=== PATIENT | female | born 1995 | race Caucasian/White ===

== ENCOUNTER 2017-03-13 12:33 | Emergency (ER) | payer BC, OTHER ==
[~2017-03-13] VITALS: Ht 167.6 cm; Wt 77.1 kg
[2017-03-13 12:45] VITALS: BP 120/75
[2017-03-13] MEDS ORDERED: KETOROLAC TROMETHAMINE 30 MG/ML INJ. IV ONE (12:45)
[2017-03-13] MEDS ORDERED: IV NORMAL SALINE 1000ML BAG 1,000 ML IV ONE (12:45)
[2017-03-13 13:00] LABS: BILIRUBIN,URINE NEGATIVE (NEG); GLUCOSE,URINE NEGATIVE (NEG); NITRITE,URINE NEGATIVE (NEG); PROTEIN,URINE NEGATIVE (NEG-TRACE); UROBILINOGEN,URINE 0.2 mg/dL (0.2 mg/dL)
[2017-03-13] MEDS ORDERED: IBUPROFEN 400 MG TABLET. PO ONE (13:00)
[2017-03-13] MEDS ORDERED: ACETAMINOPHEN/CODEINE 300/30MG TABLET. PO ONE (13:00)
--- NOTE | 2017-03-13 13:16 | PHYS DOC ---
Past Medical History Past Medical History: UTI, Other Additional Past Medical Histor: ADD Past Surgical History: No Surgical History Alcohol Use: Rarely Drug Use: None Adult General Chief Complaint Chief Complaint: FLANK PAIN HPI HPI Patient is a 21 year old female presents with complaints of low back pain. Patient has history of frequent UTIs denies recent fevers, chills, rashes, falls. 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 Patient has vaginal discharge but is at her baseline and there is no changes on that. Patient's pain is reproducible with palpation. Patient reports dysuria Review of Systems Review of Systems Constitutional: Denies fever or chills [] HENT: No pain Respiratory: Denies cough or shortness of breath [] Cardiovascular: No pain GI: Denies abdominal pain, nausea, vomiting, bloody stools or diarrhea [] : yes dysuria Musculoskeletal: Right lateral low back pain] Integument: Denies rash or skin lesions [] Neurologic: Denies headache, focal weakness or sensory changes [] Endocrine: Denies polyuria or polydipsia [] Current Medications Current Medications Current Medications Medications (Trade) Dose Ordered Sig/Bharathi Start Time Stop Time Status Last Admin Dose Admin Acetaminophen/ Codeine Phosphate (Tylenol #3) 1 tab 1X ONCE 03/13/17 13:00 03/13/17 13:01 DC 03/13/17 13:15 1 TAB Ibuprofen (Motrin) 400 mg 1X ONCE 03/13/17 13:00 03/13/17 13:01 DC 03/13/17 13:15 400 MG Ketorolac Tromethamine (Toradol) 30 mg 1X ONCE 03/13/17 12:45 03/13/17 12:57 DC Sodium Chloride 1,000 ml @ 1,000 mls/hr 1X ONCE 03/13/17 12:45 03/13/17 12:57 DC Allergies Allergies Allergies Coded Allergies Type Severity Reaction Last Updated Verified Iodine and Iodide Containing Produc Allergy Intermediate hives 03/13/17 Yes Uncoded Allergies Type Severity Reaction Last Updated Verified seafood Allergy Intermediate hives 03/13/17 Physical Exam Physical Exam Constitutional: Well developed, well nourished, no acute distress, non-toxic appearance. [] HENT: Normocephalic, atraumatic, nose normal. [] Eyes: PERRLA, EOMI, conjunctiva normal, no discharge. [] Neck: Normal range of motion, trachea midline [] Cardiovascular:Heart rate regular rhythm, normal perfusion, no vascular insufficiency, no edema Lungs & Thorax: Bilateral breath sounds clear to auscultation, no tachypnea Abdomen: Bowel sounds normal, soft, no tenderness, no masses, no pulsatile masses. [] Back: No tenderness, diffuse low back pain with muscle spasm. No midline tenderness to palpation in the spine Extremities: No tenderness, no cyanosis, ROM intact, no edema. [] Neurologic: Alert and oriented X 3, normal motor function, ambulates in the ED without difficulty and with normal gait, no focal deficits noted. [] Psychologic: Affect normal, judgement normal, mood normal. [] Current Patient Data Vital Signs Vital Signs Date Time Temp Pulse Resp B/P (MAP) Pulse Ox O2 Delivery O2 Flow Rate FiO2 03/13/17 12:45 98.5 86 18 120/75 (90) 98 Room Air 98.5 Lab Values Laboratory Tests Test 03/13/17 11:51 03/13/17 12:44 POC Urine HCG, Qualitative Hcg negative (Negative) Urine Collection Type Unknown Urine Color Colorless Urine Clarity Clear Urine pH 7.0 Urine Specific [place] <=1.005 Urine Protein Negative mg/dL (NEG-TRACE) Urine Glucose (UA) Negative mg/dL (NEG) Urine Ketones (Stick) Negative mg/dL (NEG) Urine Blood Small (NEG) Urine Nitrite Negative (NEG) Urine Bilirubin Negative (NEG) Urine Urobilinogen Dipstick 0.2 mg/dL (0.2 mg/dL) Urine Leukocyte Esterase Small (NEG) Urine RBC 0 /HPF (0-2) Urine WBC 11-20 /HPF (0-4) Urine Squamous Epithelial Cells Few /LPF Urine Bacteria Few /HPF (0-FEW) EKG EKG [] Radiology/Procedures Radiology/Procedures [] Course & Med Decision Making Course & Med Decision Making Pertinent Labs and Imaging studies reviewed. (See chart for details) 1343 patient reevaluate at this time and her lab results discussed. Patient found in the room texting on phone in no distress. I reexamined the patient and palpation of the low back results reproducible pain. I explained to the patient that I believe at this time based on this presentation that this more muscular issue. The clinical presentation was consistent with kidney stones. Patient voices understanding, and is agreeable for pain control at this time and follow with PCP for reexamination. At the time of this ED presentation There Is Low Probability for Significant Vascular, Infectious, or Other concerning Etiology That Would Necessitate Inpatient Evaluation or Further Imaging. Strict Return Precautions Have Been Given to the Patient. [] Dragon Disclaimer Dragon Disclaimer This electronic medical record was generated, in whole or in part, using a voice recognition dictation system. Departure Departure Impression: Primary Impression: Back pain Disposition: HOME, SELF-CARE Condition: STABLE Patient Instructions: Back Pain, Adult Scripts Naproxen (NAPROXEN) 375 Mg Tablet 1 TAB PO BID, #20 TAB 5 Refills Prov: Daniele JEFF MD 03/13/17 Acetaminophen With Codeine (ACETAMINOPHEN-COD #3 TABLET) 1 Each Tablet 1 TAB PO PRN Q6HRS Y for PAIN for 2 Days, #8 TAB Prov: Daniele JEFF MD 03/13/17 Daniele JEFF MD Mar 13, 2017 13:16
[2017-03-13 13:19] LABS: BACTERIA,URINE FEW /HPF (0-FEW); RBC,URINE 0 /HPF (0-2); SQUAMOUS EPITHELIAL CELL,UR FEW /LPF
[2017-03-13] MEDS ORDERED: NAPR375T3 PO (13:50)
[2017-03-13] MEDS ORDERED: ACET1TAB33 PO (13:50)
== END 2017-03-13 14:02 | disposition home or self-care (01) ==
LOC: ER 12:33
DX: M54.5 Low back pain (principal); N89.8 Other specified noninflammatory disorders of vagina; Z91.013 Allergy to seafood; Z91.041 Radiographic dye allergy status
CPT/HCPCS: 81001; 81025; 87086; 99284